=== PATIENT | male | born 1940 | race Caucasian/White ===

== ENCOUNTER 2020-08-12 06:03 | Inpatient (IN) | payer OTHER ==
[2020-08-05 17:17] VITALS: BMI 29.2
[~2020-08-12 06:03] MED LIST: VANCOMYCIN 1,000 MG VIAL (RESTRICTED TO ID ONLY) IVPB ONE
--- OUTSIDE RECORDS SUMMARY | 2020-08-12 06:07 | XMS ---
:1940 Author Organization [facility] Support Name Relationship Address Phone RE Unavailable Unavailable Unavailable BAILEY WEISS [id number] [address] [place] [id number] Re-disclosure Warning The records that you are about to access may contain information from federally- assisted alcohol or drug abuse programs. If such information is present, then the following federally mandated warning applies: This information has been disclosed to you from records protected by federal confidentiality rules (42 CFR part 2). The federal rules prohibit you from making any further disclosure of this information unless further disclosure is expressly permitted by the written consent of the person to whom it pertains or as otherwise permitted by 42 CFR part 2. A general authorization for the release of medical or other information is NOT sufficient for this purpose. The Federal rules restrict any use of the information to criminally investigate or prosecute any alcohol or drug abuse patient.The records that you are about to access may contain highly sensitive health information, the redisclosure of which is protected by Article 27-F of the [facility] Public Health law. If you continue you may haveaccess to information: Regarding HIV / AIDS; Provided by facilities licensed or operated by the [facility] Office of Mental Health; or Provided by the [facility] Office for People With Developmental Disabilities. If such information is present, then the following [facility] mandated warning applies: This information has been disclosed to you from confidential records which are protected by state law. State law prohibits you from making any further disclosure of this information without the specific written consent of the person to whom it pertains, or as otherwise permitted by law. Any unauthorized further disclosure in violation of state law may result in a fine or fci sentence or both. A general authorization for the release of medical or other information is NOT sufficient authorization for further disclosure. Insurance Providers Payer name Policy type Policy ID Covered Covered green party's Policy P juan / Coverage green party ID relationship to [employer] Inf ormation type web[employer], [id number] SP [id number] [employer]/ MEDICARE [id number] SP [id number] 1 [id number] [place] [id number] PART B DOWNSTATE Results ID Date Data Source [id number] 08/08/2020 10:50:00 AM EDT [facility] Name Value Range Interpretation Description Data Sup porting Code Source(s) Document(s ) SARS [facility] coronavirus 2 RNA This lab was ordered by [facility]MA jimenez [facility] and reported by [facility]. Procedure
[2020-08-12] MEDS ORDERED: CEFAZOLIN 2 GM in DEXTROSE 5%-WATER - 50 ML IVPB ONE (06:30)
[2020-08-12] MEDS ORDERED: CELECOXIB 200 MG CAPSULE PO ONE (06:30)
[2020-08-12] MEDS ORDERED: SODIUM CHLORIDE 0.9% P/F 10 ML VIAL IJ ONE ×2 (06:31→08:19)
[2020-08-12] MEDS ORDERED: BUPIVACAINE LIPOSOME/PF (EXPAREL) 266 MG/20 ML VIAL ONE (06:31)
[2020-08-12] MEDS ORDERED: MIDAZOLAM HCL 2 MG/2 ML SINGLE DOSE VIAL ONE ×2 (06:31→06:56)
[2020-08-12] MEDS ORDERED: BUPIVACAINE HCL/PF 0.5% (5MG/ML) 10 ML VIAL ONE (06:54)
[2020-08-12] MEDS ORDERED: KETOROLAC TROMETHAMINE 30 MG/1 ML VIAL ONE (07:04)
[2020-08-12] MEDS ORDERED: DEXAMETHASONE SOD PHOSPHATE 4 MG/1 ML VIAL ONE (07:04)
[2020-08-12] MEDS ORDERED: PROPOFOL 20 ML ONE ×2 (07:05→08:25)
[2020-08-12] MEDS ORDERED: LIDOCAINE HCL/PF 2% SDV 5ML VIAL ONE (07:05)
[2020-08-12] MEDS ORDERED: SUCCINYLCHOLINE CHLORIDE 200 MG/10 ML SYRINGE ONE (07:06)
[2020-08-12] MEDS ORDERED: VANCOMYCIN 1,000 MG VIAL (RESTRICTED TO ID ONLY) ONE (07:14)
[2020-08-12] MEDS ORDERED: ceFAZolin SODIUM 1 GM VIAL ONE ×2 (07:14→08:19)
[2020-08-12] MEDS ORDERED: ONDANSETRON 4 MG/2 ML VIAL IVPUSH PRN ×2 (07:50→07:52)
[2020-08-12] MEDS ORDERED: MAGNESIUM HYDROX 2400MG/30ML ORAL SUSPENSION 30 ML CUP PO PRN (07:52)
[2020-08-12] MEDS ORDERED: MAG HYDROX/AL HYDROX/SIMETH 30 ML UNIT-DOSE CUP PO PRN (07:52)
--- NOTE | 2020-08-12 07:54 | HP ---
Satellite [facility] - Chief Complaint Chief Complaint: right knee pain - Past Medical History Allergies/Adverse Reactions: Allergies Allergy/AdvReac Type Severity Reaction Status Date / Time No Known Allergies Allergy Verified 08/05/20 17:07 - Current Medications Current Medications: Home Medications Medication Instructions Recorded Aspirin [Aspirin EC] 81 mg PO DAILY 08/05/20 Cholecalciferol (Vitamin D3) 25 mcg PO BID 08/05/20 [Vitamin D3] Nebivolol [Bystolic -] 5 mg PO DAILY 08/05/20 Pantoprazole Sodium [Protonix] 40 mg PO HS 08/05/20 Rosuvastatin Calcium [Crestor] 20 mg PO HS 08/05/20 Valsartan [Diovan] 160 mg PO DAILY 08/05/20 Satellite Physical Exam - Physical Examination Vital Signs: Vital Signs Period Temp Pulse Resp BP Sys/Schaffer Pulse Ox Last 24 Hr 98.2 F 52 18 139/89 97 General Appearance: Well Nourished, Well Developed, Alert & Oriented x3 ENT: Clear Lung: Normal air movement Extremities: Other (right knee- + swelling, + ttp ,decr rom ,nvi, xrays show grade 4 tricompartmental djd) Neurological: Intact, Alert, Oriented Satellite Impression/Plan - Impression/Plan Impression: right knee djd Operative Procedure: right oh tkr Date to be Performed: 08/12/20
[2020-08-12] MEDS ORDERED: TRANEXAMIC ACID 1000 MG/10 ML VIAL IVPUSH ONE (08:00)
[2020-08-12] MEDS ORDERED: LACTATED RINGERS SOLUTION 1,000 ML IV SCH (08:00)
[2020-08-12] MEDS ORDERED: TRANEXAMIC ACID 1000 MG/10 ML VIAL ONE (08:19)
[2020-08-12] MEDS ORDERED: VANCOMYCIN 1,000 MG VIAL (RESTRICTED TO ID ONLY) IVPB ONE (09:15)
--- NOTE | 2020-08-12 09:37 | OP ---
Operative Note - Note: Operative Date: 08/12/20 (lila) Pre-Operative Diagnosis: right knee djd Operation: right oh tkr Post-Operative Diagnosis: Same as Pre-op Surgeon: Ney Johnson [employer] Piping Designer: Rosendo Garnica Anesthesiologist/GLUING PRESSMAN: Marlo Lam Anesthesia: Spinal, Local Specimens Removed: bone fragments Estimated Blood Loss (mls): 100
[2020-08-12] MEDS: ACETAMINOPHEN 1000 MG/100 ML VIAL (NON FORMULARY) IVPB ONE ×2 (10:00→20:30)
[2020-08-12] MEDS ORDERED: GLYCOPYRROLATE 0.2 MG/1 ML VIAL IVPB ONE (11:10)
[2020-08-12] MEDS: CEFAZOLIN 2 GM/D5W 2 GM/50 ML ML IVPB SCH ×2 (15:59→23:59)
--- NOTE | 2020-08-12 16:10 | SPEC ---
DATE OF OPERATION: 08/12/2020 PREOPERATIVE DIAGNOSIS: Degenerative joint disease, right knee. POSTOPERATIVE DIAGNOSIS: Degenerative joint disease, right knee. PROCEDURE: Right total knee replacement with robotic-assisted navigation (MAKOplasty)/cementless. SURGICAL ATTENDING: Ney Johnson MD. GAS LINE REPAIRER: CANDICE Arevalo. ANESTHESIA: Regional and spinal. CLOSURE: A cementless Triathlon knee system with a 6 femur, 7 tibia, 38 patella, 9 polyethylene; No. 1 Vicryl, fascia; 0 and 2-0 for subcutaneous; and 3-0 Monocryl subcuticular with skin glue for skin; 4-0 undyed Vicryl for pin sites. ESTIMATED BLOOD LOSS: Negligible. COMPLICATIONS: None. CONDITION: To recovery room in stable condition. DESCRIPTION OF OPERATIVE PROCEDURE: Patient was taken to the operating room on August 12, 2020. Regional and spinal anesthesia was administered by the anesthesiologist. IV Kefzol was administered prophylactically prior to the case as well as TXA. The right lower extremity was prepped and draped in the usual sterile fashion. The midline 10- to 12-cm longitudinal incision was made. Hemostasis was achieved with Bovie cautery. Sharp dissection was carried down to the extensor mechanism which was perform the procedure. Medial parapatellar arthrotomy was then performed, leaving a cuff of tissue for later closure. The patella was inverted and the knee was flexed up. The fat pad was excised. Subperiosteal dissection was done on the anteromedial proximal tibia until the knee was able to be brought forward. This was facilitated by taking the ACL, PCL and medial and lateral menisci. Checkpoints were placed in both the femur and in the tibia. Two parallel threaded pins were drilled superior to the knee joint through the already made incision from anterior to posterior just going through the anterior cortex but just engaging but not going through the posterior cortex. Two threaded pins were drilled through 2 small stab incisions in parallel fashion 1 handbreadth below the tibial tubercle through the anterior cortex of the tibia and engaging but not going through the posterior cortex. Both sets of pins were attached to navigation arrays for the BARNEY system. The knee was then registered with the navigation system with center of rotation of the hip, medial and lateral malleoli and multiple sites both on the tibia and on the femur. Confirmation of excellent registration was confirmed by "popping the bubbles." At this time, the knee was thoroughly inspected to remove all osteophytes around the knee. The knee was then tensioned in varus/valgus at both full extension and at 90 degrees of flexion to ascertain our gaps. The virtual position of the components was optimized to ensure equal gaps throughout the range of motion. Once this was performed, the robot was brought into the field, was registered. The bone was cut as per the specifications on both the tibia and on the femur. The box cuts were then made as well. Excellent trial stability was obtained on the femur. The tibial baseplate was allowed to "find itself" and then was clipped into place. Confirmation of excellent external rotation of that component was confirmed by the navigation device as well.The patella was calibered for thickness and cut at the appropriate level. The appropriate lollipop was used to drill 3 holes in the patella and a trial asymmetric patellar button was applied. The knee was taken through a range of motion and found to have excellent stability from full extension to full flexion with excellent tracking of the patella. The trial components were then removed. The lug holes were drilled in the femur. The cementless keel was punched in the tibia. The real Press-Fit components were malleted into place, first with the tibia and then with the femur, and then the patella was crimped into place as well. The real polyethylene liner was then clipped into place. Range of motion, stability and tracking were as described earlier. The knee was thoroughly irrigated with copious amounts of irrigation. Vancomycin powder was placed inside the joint. The medial parapatellar arthrotomy was then closed using No. 1 Vicryl interrupted suture. Post closure of the arthrotomy, the knee was taken through a range of motion and found to have no undue tension on the repair. The subcutaneous was then pulse antibiotic irrigated, closed with 0 and 2-0 Vicryl and 3-0 Monocryl subcuticular with skin glue for the skin. Prior to closure, the checkpoints were removed as were the threaded pins. The tibial pin sites were closed with 4-0 undyed Vicryl. A sterile pressure Aquacel dressing was applied. No tourniquet was used during the case. The total blood loss was approximately 100 mL. No complication. Patient was transferred to recovery in stable condition. Shane [id number]
[2020-08-12] MEDS: ACETAMINOPHEN 325 MG TABLET (FP) PO SCH ×2 (17:33→23:59)
[2020-08-12] MEDS: LACTATED RINGERS SOLUTION 1,000 ML IV SCH (20:31)
[2020-08-12] MEDS: NEBIVOLOL 5 MG TABLET (FP) PO SCH (20:32)
[2020-08-12] MEDS: VALSARTAN 160 MG TABLET (UD) PO SCH (20:32)
[2020-08-12] MEDS: oxyCODONE HCL 10 MG SUSTAINED ACTING TABLET PO SCH ×2 (20:32→21:15)
[2020-08-12] MEDS: MULTIVITAMINS (DAILY MVI) TABLET (FP) PO SCH (20:33)
[2020-08-12] MEDS: SENNOSIDES/DOCUSATE COMBO (SENNA PLUS) TABLET (UD) PO SCH ×2 (20:33→21:16)
[2020-08-12] MEDS: ROSUVASTATIN CA 20 MG TABLET (FP) PO SCH (21:16)
[2020-08-12] MEDS: PANTOPRAZOLE 40 MG TABLET PO SCH (21:16)
[2020-08-13] MEDS: ACETAMINOPHEN 325 MG TABLET (FP) PO SCH ×3 (06:12→17:11)
[2020-08-13] MEDS: ASPIRIN 325 MG TABLET PO SCH (07:45)
[2020-08-13] MEDS: oxyCODONE HCL 5 MG TABLET PO PRN ×4 (07:46→21:16)
[2020-08-13 08:17] LABS: HEMATOCRIT 38.1 % (35.4-49); HEMOGLOBIN 12.4 GM/dl (11.7-16.9); MCH 30.8 pg (25.7-33.7); MCHC 32.5 g/dl (32.0-35.9); MEAN CELL VOLUME 94.8 fl (80-96); MEAN PLT VOLUME 8.7 fl (7.5-11.1); PLATELET COUNT 98 K/MM3 (134-434); RBC 4.02 M/mm3 (4.00-5.60); RDW 12.6 % (11.9-15.9); WHITE BLOOD COUNT 6.8 K/mm3 (4.0-10.8)
--- NOTE | 2020-08-13 08:40 | PN ---
Progress Note (short form) - Note Progress Note: Ortho Pt seen and examined s/p right oh tkr pod #1 Selected Entries 08/13/20 06:00 Temperature 98.1 F Pulse Rate 52 L Respiratory 18 Rate Blood Pressure 134/58 L Laboratory Tests 08/13/20 06:54 WBC 6.8 Hgb 12.4 Hct 38.1 Plt Count 98 L dressing c/d/i, rom 2-90, calf soft, nt nvi a/p PT dvt ppx pain control d/c home tomorrow if stable
[2020-08-13] MEDS: SENNOSIDES/DOCUSATE COMBO (SENNA PLUS) TABLET (UD) PO SCH ×2 (09:18→21:16)
[2020-08-13] MEDS: MULTIVITAMINS (DAILY MVI) TABLET (FP) PO SCH (09:18)
[2020-08-13] MEDS: oxyCODONE HCL 10 MG SUSTAINED ACTING TABLET PO SCH ×2 (09:20→21:15)
[2020-08-13] MEDS: NEBIVOLOL 5 MG TABLET (FP) PO SCH (11:40)
[2020-08-13] MEDS: VALSARTAN 160 MG TABLET (UD) PO SCH (11:40)
[2020-08-13] MEDS: LACTATED RINGERS SOLUTION 1,000 ML IV SCH (11:57)
--- NOTE | 2020-08-13 15:12 | PN ---
Progress Note (short form) - Note Progress Note: 80M POD1 s/p R TKR under spinal anesthetic with peripheral nerve blocks. Pt doing well and denies any anesthetic complications. Pain is well controlled. Continue current regimen.
[2020-08-13] MEDS: PANTOPRAZOLE 40 MG TABLET PO SCH (21:16)
[2020-08-13] MEDS: ROSUVASTATIN CA 20 MG TABLET (FP) PO SCH (21:16)
[2020-08-14] MEDS: oxyCODONE HCL 5 MG TABLET PO PRN ×2 (06:43→12:56)
[2020-08-14] MEDS: ACETAMINOPHEN 325 MG TABLET (FP) PO SCH ×3 (06:44→12:55)
[2020-08-14 07:37] LABS: HEMATOCRIT 36.2 % (35.4-49); HEMOGLOBIN 11.9 GM/dl (11.7-16.9); MCH 31.3 pg (25.7-33.7); MCHC 32.9 g/dl (32.0-35.9); MEAN CELL VOLUME 95.1 fl (80-96); MEAN PLT VOLUME 8.6 fl (7.5-11.1); PLATELET COUNT 105 K/MM3 (134-434); RBC 3.81 M/mm3 (4.00-5.60); RDW 12.8 % (11.9-15.9); WHITE BLOOD COUNT 8.1 K/mm3 (4.0-10.8)
[2020-08-14] MEDS: ASPIRIN 325 MG TABLET PO SCH (08:47)
[2020-08-14] MEDS: LACTATED RINGERS SOLUTION 1,000 ML IV SCH (08:49)
[2020-08-14 09:01] VITALS: BP 110/63; PULSE 82; TEMP 98.4
--- NOTE | 2020-08-14 09:11 | PN ---
Progress Note (short form) - Note Progress Note: Ortho Pt seen and examined s/p right oh tkr pod #2 Selected Entries 08/14/20 09:01 Temperature 98.4 F Pulse Rate 82 Respiratory 19 Rate Blood Pressure 110/63 Laboratory Tests 08/14/20 07:17 WBC 8.1 Hgb 11.9 Hct 36.2 Plt Count 105 L dressing c/d/i, rom 0-90, calf soft, nt nvi a/p PT dvt ppx pain control d/c home today f/u in 1 week
--- NOTE | 2020-08-14 09:11 | DS ---
Physical Examination Vital Signs: Vital Signs Temperature 98.4 F 08/14/20 09:01 Pulse Rate 82 08/14/20 09:01 Respiratory Rate 19 08/14/20 09:01 Blood Pressure 110/63 08/14/20 09:01 O2 Sat by Pulse Oximetry (%) 96 08/14/20 09:01 Labs: CBC, BMP 08/14/20 07:17 Discharge Summary Problems reviewed: Yes Reason For Visit: OSTEOARTHRITIS Procedures: Principal: right tkr Hospital Course: admitted for elective right oh tkr, post-op per protocol, stable for d/c Condition: Good - Instructions Diet, Activity, Other Instructions: Post-op Instructions-Total Knee Replacement Call the office for a follow-up appointment in 1 week - [phone] Aspirin 325mg daily for 6 weeks. Pain medication was sent into your pharmacy. Apply Graduated Compression Stockings (TEDs) to both lower extremities- remove daily for hygiene ONLY Apply Sequential Compression Device (SCDs) to both Lower extremities remove for PT and hygiene ONLY Apply cold packs to affected area for 15 minutes every 2 hours. Physical Therapist will come to your home for the first 5 days. You will be set up with outpatient PT at your first post-operative visit. Patient may ambulate as tolerated-encourage self care (at least every 2-3 hours while awake) with walker or cane Maintain Aquacel (waterproof) dressing to operative wound (will be removed by surgeon at first office visit) Shower with Aquacel dressing in place-if Aquacel integrity compromised, remove and apply dry sterile dressing and notify Orthopedist. DO NOT SHOWER unless Orthopedists approves without Aquacel dressing CONTACT THE OFFICE FOR ANY CHANGE IN YOUR CONDITION (for example-fever greater than 102 degrees, excessive bleeding from operative site, purulent drainage, severe swelling or pain) GO TO THE EMERGENCY ROOM IF THERE IS A MEDICAL EMERGENCY Knee Precautions: * Keep a rolled towel under affected heel while in bed or chair (to keep knee in extension) * Keep affected leg elevated except during mealtimes * DO NOT PLACE PILLOW UNDER AFFECTED KNEE * If you have any questions, please do not hesitate to call the office - [phone]. Referrals: Ney Johnson MD [Staff Physician] - Disposition: VNS/HOME HEALTH CARE - Home Medications Comprehensive Discharge Medication List: Ambulatory Orders Aspirin [Aspirin EC] 81 mg PO DAILY 08/05/20 Cholecalciferol (Vitamin D3) [Vitamin D3] 25 mcg PO BID 08/05/20 Nebivolol [Bystolic -] 5 mg PO DAILY 08/05/20 Pantoprazole Sodium [Protonix] 40 mg PO HS 08/05/20 Rosuvastatin Calcium [Crestor] 20 mg PO HS 08/05/20 Valsartan [Diovan] 160 mg PO DAILY 08/05/20 Aspirin [ASA -] 325 mg PO DAILY@0800 tablet 08/12/20 Oxycodone HCl/Acetaminophen [Percocet 5-325 mg Tablet -] 1 - 2 tab PO Q6H #50 tab MDD 8 08/12/20
[2020-08-14] MEDS: VALSARTAN 160 MG TABLET (UD) PO SCH (09:34)
[2020-08-14] MEDS: MULTIVITAMINS (DAILY MVI) TABLET (FP) PO SCH (09:34)
[2020-08-14] MEDS: NEBIVOLOL 5 MG TABLET (FP) PO SCH (09:34)
[2020-08-14] MEDS: oxyCODONE HCL 10 MG SUSTAINED ACTING TABLET PO SCH (09:34)
[2020-08-14] MEDS: SENNOSIDES/DOCUSATE COMBO (SENNA PLUS) TABLET (UD) PO SCH (09:34)
--- NOTE | 2020-08-14 12:38 | PATH ---
Surgical Pathology Report Patient Name: AKHIL WEISS Med. Rec. #: [id number] /Age/Gender: 1940 (Age: 80) / M Account: [id number] Location: [facility] MED-SURG Taken: 08/12/2020 Received: 08/12/2020 Reported: 08/14/2020 Physicians: Ney Johnson M.D. Specimen(s) Received RIGHT KNEE BONES Clinical History Right knee osteoarthritis Final Diagnosis BONES, KNEE, RIGHT, TOTAL KNEE REPLACEMENT MAKOPLASTY: BONE WITH DEGENERATIVE JOINT DISEASE. Electronically Signed Ava Mosher M.D. Gross Description Received in formalin labeled "right knee bones" is a 9 x 9 x 5 cm aggregate of multiple portions of bone and soft tissue. The tibial plateau measures 8 x 6 x 0.7 cm. There are focal areas of eburnation identified. The articular surface is [place]-yellow and granular. The underlying trabecular bone is yellow and hard. [employer] Assembler sections submitted in one cassette, following decalcification. MLROSY/08/12/2020 hanna/08/12/2020
== END 2020-08-14 13:36 | disposition home health service (06) | DRG 470 ==
LOC: FM/S 06:03
PROVIDERS: ADMIT Orthopaedic Surgery; ATTEND Orthopaedic Surgery
PROC: 8E0Y0CZ Robotic Assisted Procedure of Lower Extremity, Open Approach (ICD-10-PCS; 2020-08-12)
PROC: 0SRC0JA Replacement of Right Knee Joint with Synthetic Substitute, Uncemented, Open Approach (ICD-10-PCS; principal; 2020-08-12 08:31)
DX: M17.11 Unilateral primary osteoarthritis, right knee (principal)
CPT/HCPCS: 36415; 73560-TC-RT-FY; 85027; 88305-TC; 88311-TC; 94760; 97116-GP; 97163-GP; J0131

== ENCOUNTER 2021-03-03 08:00 | Inpatient (IN) | payer OTHER ==
[2021-02-24 12:04] VITALS: BMI 29.7
[2021-03-03] MEDS ORDERED: CEFAZOLIN 2 GM in DEXTROSE 5%-WATER - 50 ML IVPB ONE (08:53)
[2021-03-03] MEDS ORDERED: TRANEXAMIC ACID 1000 MG/10 ML VIAL IVPUSH ONE (08:53)
[2021-03-03] MEDS ORDERED: CELECOXIB 200 MG CAPSULE PO ONE (08:53)
[2021-03-03] MEDS ORDERED: ONDANSETRON 4 MG/2 ML VIAL IVPUSH PRN ×2 (10:07→11:26)
[2021-03-03] MEDS ORDERED: SODIUM CHLORIDE 0.9% P/F 10 ML VIAL IJ ONE (10:15)
[2021-03-03] MEDS ORDERED: MIDAZOLAM HCL 2 MG/2 ML SINGLE DOSE VIAL ONE (10:15)
[2021-03-03] MEDS ORDERED: BUPIVACAINE LIPOSOME/PF (EXPAREL) 266 MG/20 ML VIAL ONE (10:15)
[2021-03-03] MEDS ORDERED: ceFAZolin SODIUM 1 GM VIAL ONE (10:32)
[2021-03-03] MEDS ORDERED: VANCOMYCIN 1,000 MG VIAL (RESTRICTED TO ID ONLY) ONE (10:32)
[2021-03-03] MEDS ORDERED: PROPOFOL 20 ML ONE ×2 (11:25)
[2021-03-03] MEDS ORDERED: MAG HYDROX/AL HYDROX/SIMETH 30 ML UNIT-DOSE CUP PO PRN (11:26)
[2021-03-03] MEDS ORDERED: MAGNESIUM HYDROX 2400MG/30ML ORAL SUSPENSION 30 ML CUP PO PRN (11:26)
[2021-03-03] MEDS ORDERED: LACTATED RINGERS SOLUTION 1,000 ML IV SCH (11:30)
[2021-03-03] MEDS ORDERED: KETAMINE HCL 200 MG/20 ML VIAL ONE (11:47)
[2021-03-03] MEDS ORDERED: VANCOMYCIN 1,000 MG VIAL (RESTRICTED TO ID ONLY) IVPB ONE (12:22)
[2021-03-03] MEDS: LACTATED RINGERS SOLUTION 1,000 ML IV SCH (15:34)
[2021-03-03] MEDS: oxyCODONE HCL 5 MG TABLET PO PRN (19:19)
[2021-03-03] MEDS: ACETAMINOPHEN 325 MG TABLET (FP) PO PRN (19:19)
[2021-03-03] MEDS: CEFAZOLIN 2 GM/D5W 2 GM/50 ML ML IVPB SCH (19:20)
[2021-03-03] MEDS: PANTOPRAZOLE 40 MG TABLET PO SCH (21:02)
[2021-03-03] MEDS: ROSUVASTATIN CA 20 MG TABLET (FP) PO SCH (21:02)
[2021-03-03] MEDS: oxyCODONE HCL 10 MG SUSTAINED ACTING TABLET PO SCH (21:02)
[2021-03-03] MEDS: SENNOSIDES/DOCUSATE COMBO (SENNA PLUS) TABLET (UD) PO SCH (21:02)
[2021-03-03] MEDS ORDERED: PATIENT'S OWN MEDICATION (NON-FORMULARY) (Icosapent Ethyl [Vascepa] 1 GM Capsule) PO SCH (22:00)
[2021-03-03] MEDS ORDERED: KETOROLAC TROMETHAMINE 30 MG/1 ML VIAL IVPB PRN (22:51)
[2021-03-03] MEDS ORDERED: oxyCODONE HCL 5 MG TABLET PO PRN (22:51)
[2021-03-04] MEDS: CEFAZOLIN 2 GM/D5W 2 GM/50 ML ML IVPB SCH (03:22)
[2021-03-04] MEDS: ACETAMINOPHEN 325 MG TABLET (FP) PO PRN ×2 (03:26→21:45)
[2021-03-04 08:29] LABS: HEMATOCRIT 35.8 % (35.4-49); HEMOGLOBIN 11.8 GM/dl (11.7-16.9); MCH 30.6 pg (25.7-33.7); MCHC 32.9 g/dl (32.0-35.9); MEAN CELL VOLUME 93.2 fl (80-96); PLATELET COUNT 91 K/MM3 (134-434); RBC 3.84 M/mm3 (4.00-5.60); RDW 13.7 % (11.9-15.9); WHITE BLOOD COUNT 5.4 K/mm3 (4.0-10.8)
[2021-03-04] MEDS: oxyCODONE HCL 10 MG SUSTAINED ACTING TABLET PO SCH ×2 (10:19→21:46)
[2021-03-04] MEDS: SENNOSIDES/DOCUSATE COMBO (SENNA PLUS) TABLET (UD) PO SCH ×2 (10:19→21:45)
[2021-03-04] MEDS: ASPIRIN 325 MG TABLET PO SCH (10:19)
[2021-03-04] MEDS: MULTIVITAMINS (DAILY MVI) TABLET (FP) PO SCH (10:19)
[2021-03-04] MEDS: NEBIVOLOL 5 MG TABLET (FP) PO SCH (10:52)
[2021-03-04] MEDS: VALSARTAN 160 MG TABLET PO SCH (10:52)
[2021-03-04] MEDS: oxyCODONE HCL 5 MG TABLET PO PRN (21:44)
[2021-03-04] MEDS: ROSUVASTATIN CA 20 MG TABLET (FP) PO SCH (21:45)
[2021-03-04] MEDS: PANTOPRAZOLE 40 MG TABLET PO SCH (21:46)
[2021-03-05] MEDS: LACTATED RINGERS SOLUTION 1,000 ML IV SCH ×2 (07:37→09:25)
[2021-03-05] MEDS: ASPIRIN 325 MG TABLET PO SCH (08:24)
[2021-03-05 08:26] LABS: HEMATOCRIT 34.5 % (35.4-49); HEMOGLOBIN 11.6 GM/dl (11.7-16.9); MCH 31.3 pg (25.7-33.7); MCHC 33.6 g/dl (32.0-35.9); MEAN CELL VOLUME 93.2 fl (80-96); MEAN PLT VOLUME 8.6 fl (7.5-11.1); PLATELET COUNT 95 K/MM3 (134-434); RDW 13.6 % (11.9-15.9); WHITE BLOOD COUNT 7.6 K/mm3 (4.0-10.8)
[2021-03-05] MEDS: NEBIVOLOL 5 MG TABLET (FP) PO SCH (09:23)
[2021-03-05] MEDS: VALSARTAN 160 MG TABLET PO SCH (09:23)
[2021-03-05] MEDS: oxyCODONE HCL 10 MG SUSTAINED ACTING TABLET PO SCH (09:23)
[2021-03-05] MEDS: SENNOSIDES/DOCUSATE COMBO (SENNA PLUS) TABLET (UD) PO SCH (09:24)
[2021-03-05] MEDS: MULTIVITAMINS (DAILY MVI) TABLET (FP) PO SCH (09:24)
[2021-03-05 09:30] VITALS: BP 122/57; PULSE 75; TEMP 98.3
== END 2021-03-05 12:19 | disposition home health service (06) | DRG 470 ==
LOC: FM/S 08:31
PROVIDERS: ADMIT Orthopaedic Surgery; ATTEND Orthopaedic Surgery
PROC: 8E0Y0CZ Robotic Assisted Procedure of Lower Extremity, Open Approach (ICD-10-PCS; 2021-03-03)
PROC: 0SRD0JA Replacement of Left Knee Joint with Synthetic Substitute, Uncemented, Open Approach (ICD-10-PCS; principal; 2021-03-03 11:36)
DX: M17.12 Unilateral primary osteoarthritis, left knee (principal)
CPT/HCPCS: 36415; 73560-TC-LT-FY; 82962; 85027; 87081; 88305-TC; 88311-TC; 94760; 97010-GP; 97116-GP; 97163-GP

== ENCOUNTER 2022-12-07 08:16 | Day surgery (SDC) | payer OTHER ==
[2022-12-03 11:28] VITALS: BMI 29.0
[2022-12-07 10:16] VITALS: RESP 18; TEMP 97.1
[2022-12-07 10:30] VITALS: BP 119/70; PULSE 56
== END 2022-12-07 10:40 | disposition home or self-care (01) ==
LOC: FASU-ENDO 08:16
PROVIDERS: ATTEND Internal Medicine Gastroenterology
PROC: 0DB78ZX Excision of Stomach, Pylorus, Via Natural or Artificial Opening Endoscopic, Diagnostic (ICD-10-PCS; 2022-12-07)
PROC: 0DB28ZX Excision of Middle Esophagus, Via Natural or Artificial Opening Endoscopic, Diagnostic (ICD-10-PCS; 2022-12-07)
PROC: 0DB48ZX Excision of Esophagogastric Junction, Via Natural or Artificial Opening Endoscopic, Diagnostic (ICD-10-PCS; 2022-12-07)
PROC: 0DB98ZX Excision of Duodenum, Via Natural or Artificial Opening Endoscopic, Diagnostic (ICD-10-PCS; principal; 2022-12-07 09:54)
DX: K21.00 Gastro-esophageal reflux disease with esophagitis, without bleeding (principal); K44.9 Diaphragmatic hernia without obstruction or gangrene; K29.70 Gastritis, unspecified, without bleeding
CPT/HCPCS: 88305-TC; 88342-TC

== ENCOUNTER 2023-01-17 14:19 | Inpatient (IN) | payer OTHER ==
[2023-01-17] MEDS ORDERED: ALBUTEROL SO4 2.5/IPRATROPIUM 0.5 INH SOL 3 ML VIAL.NEB. NEB ONE ×2 (15:20→15:33)
[2023-01-17] MEDS ORDERED: LACTATED RINGERS SOLUTION 1,000 ML/1,000 ML INFUS.BAG IV STA ×2 (15:23→17:49)
[2023-01-17 16:13] LABS: HEMATOCRIT 36.8 % (35.4-49); HEMOGLOBIN 12.3 GM/dL (11.7-16.9); MCH 30.5 pg (25.7-33.7); MCHC 33.4 g/dl (32.0-35.9); MEAN CELL VOLUME 91.3 fl (80-96); MEAN PLT VOLUME 8.8 fl (7.5-11.1); PLATELET COUNT 87 10^3/uL (134-434); RBC 4.03 M/mm3 (4.00-5.60); RDW 14.5 % (11.9-15.9); WHITE BLOOD COUNT 11.6 K/mm3 (4.0-10.0)
[2023-01-17 16:21] LABS: VENOUS BASE EXCESS -4.9 mmol/L (-2-2); VENOUS O2 SATURATION 64.3 % (70-80); VENOUS PCO2 31.5 mmHg (38-52); VENOUS PH 7.396 (7.310-7.410)
[2023-01-17 16:24] LABS: INR 1.52 (0.83-1.09); PROTHROMBIN TIME (PATIENT) 17.6 SEC (9.7-13.0)
[2023-01-17 16:27] LABS: ACTIVATED PTT 27.7 SECONDS (25.2-36.5)
[2023-01-17 16:39] LABS: CHLORIDE 102 mmol/L (98-107); SODIUM 130 mmol/L (136-145)
[2023-01-17 16:41] LABS: CALCIUM 8.4 mg/dL (8.5-10.1)
[2023-01-17 16:42] LABS: ALBUMIN 2.5 g/dl (3.4-5.0); ANION GAP 10 MMOL/L (8-16); CO2 19 mmol/L (21-32); GLUCOSE,RANDOM 148 mg/dL (74-106); MAGNESIUM 2.4 mg/dL (1.8-2.4)
[2023-01-17 16:44] LABS: SGPT/ALT 65 U/L (13-61)
[2023-01-17 16:45] LABS: PHOSPHOROUS 3.7 mg/dL (2.5-4.9); SGOT/AST 106 U/L (15-37)
[2023-01-17 16:47] LABS: ALK PHOS 88 U/L (45-117)
[2023-01-17 16:52] LABS: CREATININE 1.7 mg/dL (0.55-1.3); LACTIC ACID 2.4 mmol/L (0.4-2.0)
[2023-01-17 17:05] LABS: EPI CELLS >36 /uL (0-25.1); HYALINE CASTS 10 /uL (0-3.1); URINE APPEARANCE TURBID; URINE BACTERIA 4 /uL (0-1359); URINE BILIRUBIN NEGATIVE (NEGATIVE); URINE COLOR DK YELLOW; URINE GLUCOSE (UA) NEGATIVE (NEGATIVE); URINE KETONE TRACE (NEGATIVE); URINE LEUK ESTERASE 1+ (NEGATIVE); URINE NITRITE NEGATIVE (NEGATIVE); URINE PROTEIN 2+ (NEGATIVE); URINE RBC 15 /uL (0-23.9); URINE WBC 161 /uL (0-25.8)
[2023-01-17 17:14] LABS: ANISOCYTOSIS 0; MACROCYTOSIS 0
[2023-01-17] MEDS ORDERED: CEFTRIAXONE 1,000 MG in DEXTROSE 5%-WATER - 50 ML IVPB ONE (17:16)
[2023-01-17] MEDS ORDERED: CEFTRIAXONE 1 GM/50 ML BAG ONE (17:49)
[2023-01-17 18:14] LABS: URINE CRYSTALS PRESENT /hpf
[2023-01-17 20:07] LABS: LACTIC ACID 2.4 mmol/L (0.4-2.0)
[2023-01-17] MEDS ORDERED: ACETAMINOPHEN INJECTION 100 ML IVPB ONE (20:18)
[2023-01-17] MEDS ORDERED: ACETAMINOPHEN 1000 MG/100 ML BAG IVPB ONE (20:49)
[2023-01-17] MEDS ORDERED: ENOXAPARIN NA (PORCINE) 100 MG/1 ML DISP.SYRIN SQ SCH (22:00)
[2023-01-17] MEDS ORDERED: ENOXAPARIN NA (PORCINE) 100 MG/1 ML DISP.SYRIN SQ ONE (22:14)
[2023-01-18 06:31] LABS: BASO % 0.1 % (0-2.0); EOS % 0.6 % (0-4.5); HEMATOCRIT 33.8 % (35.4-49); HEMOGLOBIN 11.3 GM/dL (11.7-16.9); LYMPH % 4.6 % (8-40); MCH 30.6 pg (25.7-33.7); MCHC 33.5 g/dl (32.0-35.9); MEAN CELL VOLUME 91.4 fl (80-96); MEAN PLT VOLUME 8.7 fl (7.5-11.1); MONO % 13.1 % (3.8-10.2); NEUT % 81.6 % (42.8-82.8); PLATELET COUNT 51 10^3/uL (134-434); RBC 3.69 M/mm3 (4.00-5.60); RDW 14.6 % (11.9-15.9); WHITE BLOOD COUNT 10.5 K/mm3 (4.0-10.0)
[2023-01-18 06:51] LABS: CHLORIDE 104 mmol/L (98-107); SODIUM 134 mmol/L (136-145)
[2023-01-18 06:55] LABS: ANION GAP 7 MMOL/L (8-16); CALCIUM 7.9 mg/dL (8.5-10.1); CO2 23 mmol/L (21-32); GLUCOSE,RANDOM 149 mg/dL (74-106)
[2023-01-18 06:56] LABS: BLOOD UREA NITROGEN 42.9 mg/dL (7-18)
[2023-01-18 06:59] LABS: CREATININE 1.4 mg/dL (0.55-1.3)
[2023-01-18 08:57] VITALS: BMI 28.8
[2023-01-18] MEDS ORDERED: ASPIRIN COATED 81 MG TABLET.EC ONE (10:21)
[2023-01-18] MEDS ORDERED: LIDOCAINE 5% TOPICAL PATCH ONE (10:22)
[2023-01-18] MEDS ORDERED: CEFTRIAXONE 1 GM/50 ML BAG ONE (10:22)
[2023-01-18] MEDS: ASPIRIN COATED 81 MG TABLET.EC PO SCH (10:28)
[2023-01-18] MEDS: LIDOCAINE 5% TOPICAL PATCH TP SCH (10:28)
[2023-01-18] MEDS: CEFTRIAXONE 1 GM in DEXTROSE 5%-WATER - 50 ML IVPB SCH (10:29)
[2023-01-18] MEDS ORDERED: ACETAMINOPHEN 325 MG TABLET (FP) ONE ×2 (10:29→18:16)
[2023-01-18] MEDS: ACETAMINOPHEN 325 MG TABLET (FP) PO PRN ×2 (10:30→18:25)
[2023-01-18 10:57] LABS: ALBUMIN 2.2 g/dl (3.4-5.0)
[2023-01-18 11:00] LABS: SGOT/AST 80 U/L (15-37); SGPT/ALT 54 U/L (13-61)
[2023-01-18 11:01] LABS: BILIRUBIN,TOTAL 0.8 mg/dL (0.2-1)
[2023-01-18 11:02] LABS: TOT PROT 5.2 g/dl (6.4-8.2)
[2023-01-18 11:03] LABS: ALK PHOS 78 U/L (45-117)
[2023-01-18] MEDS ORDERED: SODIUM CHLORIDE 1,000 ML IV SCH (16:45)
[2023-01-18 17:20] LABS: EPI CELLS 33 /uL (0-25.1); HYALINE CASTS 2 /uL (0-3.1); URINE APPEARANCE CLOUDY; URINE BACTERIA 4 /uL (0-1359); URINE BILIRUBIN NEGATIVE (NEGATIVE); URINE COLOR YELLOW; URINE GLUCOSE (UA) NEGATIVE (NEGATIVE); URINE KETONE NEGATIVE (NEGATIVE); URINE LEUK ESTERASE NEGATIVE (NEGATIVE); URINE NITRITE NEGATIVE (NEGATIVE); URINE PROTEIN 1+ (NEGATIVE); URINE RBC 19 /uL (0-23.9)
[2023-01-18 18:47] LABS: URINE WBC 86 /uL (0-25.8)
[2023-01-18] MEDS ORDERED: VANCOMYCIN/WATER FOR INJ (PEG) 1,000 MG/200 ML BAG IVPB SCH (19:15)
[2023-01-18] MEDS ORDERED: VANCOMYCIN/WATER FOR INJ (PEG) 1,000 MG/200 ML BAG IVPB ONE (19:27)
[2023-01-18] MEDS: LIDOCAINE PATCH REMOVAL MC SCH (22:51)
[2023-01-19 08:22] LABS: ALBUMIN 2.1 g/dl (3.4-5.0); BLOOD UREA NITROGEN 40.9 mg/dL (7-18)
[2023-01-19 08:25] LABS: CREATININE 1.1 mg/dL (0.55-1.3)
[2023-01-19 08:27] LABS: BILIRUBIN,TOTAL 0.9 mg/dL (0.2-1); TOT PROT 5.2 g/dl (6.4-8.2)
[2023-01-19] MEDS: ACETAMINOPHEN 325 MG TABLET (FP) PO PRN (11:18)
[2023-01-19] MEDS: CEFTRIAXONE 1 GM in DEXTROSE 5%-WATER - 50 ML IVPB SCH (11:19)
[2023-01-19] MEDS: APIXABAN 5 MG TABLET PO SCH ×2 (11:19→21:21)
[2023-01-19] MEDS: ASPIRIN COATED 81 MG TABLET.EC PO SCH (11:19)
[2023-01-19] MEDS: METOPROLOL TARTRATE 25 MG TABLET (FP) PO SCH ×2 (11:19→21:23)
[2023-01-19] MEDS: LIDOCAINE 5% TOPICAL PATCH TP SCH (11:20)
[2023-01-19] MEDS: VANCOMYCIN/WATER FOR INJ (PEG) 1,000 MG/200 ML BAG IVPB SCH ×2 (11:20→21:24)
[2023-01-19] MEDS: POLYETHYLENE GLYCOL (HEALTHYLAX) 3350 17 GM PACKET PO SCH (11:20)
[2023-01-19] MEDS: SODIUM CHLORIDE 1,000 ML IV SCH (13:08)
[2023-01-19] MEDS: DOCUSATE SODIUM 100 MG CAPSULE (FP) PO SCH ×2 (14:38→21:23)
[2023-01-19] MEDS: ROSUVASTATIN CA 20 MG TABLET PO SCH (21:23)
[2023-01-19] MEDS: LIDOCAINE PATCH REMOVAL MC SCH ×2 (22:00→22:44)
[2023-01-20] MEDS: ACETAMINOPHEN 325 MG TABLET (FP) PO PRN (05:26)
[2023-01-20] MEDS: DOCUSATE SODIUM 100 MG CAPSULE (FP) PO SCH ×3 (06:35→21:57)
[2023-01-20 07:45] LABS: CALCIUM 7.7 mg/dL (8.5-10.1)
[2023-01-20 07:46] LABS: ALBUMIN 1.9 g/dl (3.4-5.0); BLOOD UREA NITROGEN 33.8 mg/dL (7-18)
[2023-01-20 07:49] LABS: CREATININE 0.9 mg/dL (0.55-1.3)
[2023-01-20] MEDS ORDERED: traMADol HCL 50 MG TABLET PO PRN (07:49)
[2023-01-20 07:51] LABS: BILIRUBIN,TOTAL 0.7 mg/dL (0.2-1); TOT PROT 4.8 g/dl (6.4-8.2)
[2023-01-20 08:06] LABS: HEMATOCRIT 30.9 % (35.4-49); HEMOGLOBIN 10.4 GM/dL (11.7-16.9); MCH 30.6 pg (25.7-33.7); MCHC 33.7 g/dl (32.0-35.9); MEAN PLT VOLUME 9.6 fl (7.5-11.1); PLATELET COUNT 58 10^3/uL (134-434); RBC 3.39 M/mm3 (4.00-5.60); RDW 14.5 % (11.9-15.9); WHITE BLOOD COUNT 12.4 K/mm3 (4.0-10.0)
[2023-01-20] MEDS: TAMSULOSIN HCL 0.4 MG CAP PO SCH (08:46)
[2023-01-20] MEDS: VANCOMYCIN/WATER FOR INJ (PEG) 1,000 MG/200 ML BAG IVPB SCH ×2 (10:13→21:58)
[2023-01-20] MEDS: ASPIRIN COATED 81 MG TABLET.EC PO SCH (10:13)
[2023-01-20] MEDS: POLYETHYLENE GLYCOL (HEALTHYLAX) 3350 17 GM PACKET PO SCH (10:13)
[2023-01-20] MEDS: APIXABAN 5 MG TABLET PO SCH ×2 (10:13→21:57)
[2023-01-20] MEDS: CEFTRIAXONE 1 GM in DEXTROSE 5%-WATER - 50 ML IVPB SCH (10:13)
[2023-01-20] MEDS: METOPROLOL TARTRATE 25 MG TABLET (FP) PO SCH ×2 (10:14→21:57)
[2023-01-20] MEDS: LIDOCAINE 5% TOPICAL PATCH TP SCH (10:14)
[2023-01-20] MEDS: SODIUM CHLORIDE 1,000 ML IV SCH (12:11)
[2023-01-20] MEDS: ROSUVASTATIN CA 20 MG TABLET PO SCH (21:57)
[2023-01-20] MEDS: LIDOCAINE PATCH REMOVAL MC SCH (21:58)
[2023-01-21] MEDS: DOCUSATE SODIUM 100 MG CAPSULE (FP) PO SCH ×3 (05:48→22:33)
[2023-01-21] MEDS: TAMSULOSIN HCL 0.4 MG CAP PO SCH (09:54)
[2023-01-21] MEDS: ASPIRIN COATED 81 MG TABLET.EC PO SCH (09:54)
[2023-01-21] MEDS: APIXABAN 5 MG TABLET PO SCH ×2 (09:55→22:33)
[2023-01-21] MEDS: POLYETHYLENE GLYCOL (HEALTHYLAX) 3350 17 GM PACKET PO SCH (09:55)
[2023-01-21] MEDS: LIDOCAINE 5% TOPICAL PATCH TP SCH (09:55)
[2023-01-21] MEDS: CEFTRIAXONE 1 GM in DEXTROSE 5%-WATER - 50 ML IVPB SCH (09:55)
[2023-01-21] MEDS: METOPROLOL TARTRATE 25 MG TABLET (FP) PO SCH (09:55)
[2023-01-21] MEDS: VANCOMYCIN/WATER FOR INJ (PEG) 1,000 MG/200 ML BAG IVPB SCH (09:56)
[2023-01-21] MEDS ORDERED: SODIUM CHLORIDE 0.45% 1,000 ML IV SCH (13:30)
[2023-01-21] MEDS: NAFCILLIN - 2 GM in DEXTROSE 5%-WATER 100 ML IVPB SCH ×3 (15:48→22:33)
[2023-01-21] MEDS ORDERED: DOPAMINE HCL 400,000 MCG in SODIUM CHLORIDE 240 ML IV SCH (18:15)
[2023-01-21] MEDS ORDERED: DOPAMINE 400 MG/D5W - 400,000 MCG/250 ML INFUS.BAG IVPB ONE ×2 (18:16→22:04)
[2023-01-21] MEDS ORDERED: MIDAZOLAM HCL 2 MG/2 ML SINGLE DOSE VIAL IVPUSH ONE (18:25)
[2023-01-21] MEDS: SODIUM CHLORIDE 1,000 ML IV SCH (19:01)
[2023-01-21] MEDS ORDERED: ROCURONIUM BROMIDE 50 MG/5 ML VIAL IVPUSH ONE (19:13)
[2023-01-21] MEDS ORDERED: ETOMIDATE 20 MG/10 ML VIAL IVPUSH ONE (19:14)
[2023-01-21] MEDS ORDERED: fentaNYL CITRATE 250 MCG/5 ML VIAL ONE (19:19)
[2023-01-21] MEDS ORDERED: FENTANYL IVPB 500 MCG/100 ML BAG IVPB SCH (21:00)
[2023-01-21] MEDS ORDERED: FENTANYL NS IVPB 500 MCG/100 ML BAG IVPB ONE (21:00)
[2023-01-21] MEDS ORDERED: FENTANYL NS IVPB 500 MCG/100 ML BAG IVPB SCH ×2 (21:00→21:45)
[2023-01-21 21:02] LABS: ARTERIAL BLD GAS O2 SATURATION 92.8 % (95-98); ARTERIAL BLOOD GAS BASE EXCESS -10.8 mmol/L (-2-2); ARTERIAL BLOOD GAS PO2 82.1 mmHg (80-100)
[2023-01-21 21:09] LABS: ALLENS TEST POSITIVE; ARTERIAL BLOOD GAS pH 7.161 (7.350-7.450)
[2023-01-21 21:10] LABS: VENT MODE A/C; VENT RATE 14
[2023-01-21] MEDS ORDERED: PROPOFOL 1,000,000 MCG/100 ML VIAL ONE (21:11)
[2023-01-21] MEDS ORDERED: NOREPINEPHRINE BITARTRATE/D5W 8 MG/250 ML BAG IVPB SCH (21:15)
[2023-01-21] MEDS ORDERED: PROPOFOL 1,000,000 MCG/100 ML VIAL IVPB SCH (21:30)
[2023-01-21] MEDS ORDERED: FENTANYL CITRATE/PF 50 MCG/ML VIAL IVPUSH ONE (21:32)
[2023-01-21] MEDS: LIDOCAINE PATCH REMOVAL MC SCH (22:33)
[2023-01-21] MEDS: ROSUVASTATIN CA 20 MG TABLET PO SCH (22:33)
[2023-01-21 22:36] VITALS: TEMP 98.9
[2023-01-21 22:38] VITALS: BP 90/43; PULSE 41; RESP 32
[2023-01-22] MEDS ORDERED: CEFTRIAXONE 2 GM in DEXTROSE 5%-WATER 100 ML IVPB SCH (10:00)
== END 2023-01-21 22:30 | disposition short-term general hospital (02) | DRG 871 ==
LOC: JER 14:19 → JERBED 20:40 → J4W 01-18 22:27 → JICU 01-21 17:39
PROVIDERS: ADMIT Internal Medicine; ATTEND Internal Medicine
PROC: 5A1935Z Respiratory Ventilation, Less than 24 Consecutive Hours (ICD-10-PCS; principal; 2023-01-21)
PROC: 0BH17EZ Insertion of Endotracheal Airway into Trachea, Via Natural or Artificial Opening (ICD-10-PCS; 2023-01-21)
PROC: 5A12012 Performance of Cardiac Output, Single, Manual (ICD-10-PCS; 2023-01-21)
DX: A41.2 Sepsis due to unspecified staphylococcus (principal); I46.9 Cardiac arrest, cause unspecified; N39.0 Urinary tract infection, site not specified; E87.20 Acidosis, unspecified; N17.9 Acute kidney failure, unspecified; I44.2 Atrioventricular block, complete; I10 Essential (primary) hypertension; E78.5 Hyperlipidemia, unspecified; I25.10 Atherosclerotic heart disease of native coronary artery without angina pectoris; I48.91 Unspecified atrial fibrillation; G47.33 Obstructive sleep apnea (adult) (pediatric); K21.9 Gastro-esophageal reflux disease without esophagitis; R00.1 Bradycardia, unspecified; R33.9 Retention of urine, unspecified; D69.6 Thrombocytopenia, unspecified
CPT/HCPCS: 0241U-QW; 31500; 36415; 36600; 70450-TC; 71045-TC-FY; 71275-TC; 72125-TC; 72128-TC; 72131-TC; 74230-TC-FY; 76775-TC; 76856-TC; 80048; 80053; 81003; 82436; 82550; 82553; 82570; 82803; 83605; 83735; 84100; 84133; 84300; 84484; 85025; 85027; 85610; 85730; 86708; 87040; 87086; 87186; 87340; 87517; 87522; 92611-GN; 93005; 93010; 93225; 93226; 93306-TC; 94002; 97116-GP; 97162-GP; 99285-25; C9803-CS; U0003; U0005